=== PATIENT | male | born 1950 | race Caucasian/White ===

== ENCOUNTER 2022-05-29 16:46 | Emergency (ER) | payer MEDICARE, SELFPAY ==
[2022-05-29 16:53] VITALS: BP 197/91; PULSE 71; RESP 20; TEMP 36.6; O2SAT 99
--- NOTE | 2022-05-29 17:32 | ED.WOUNDLAC ---
HPI - Wound/Laceration General Chief Complaint: Wound/Laceration Stated Complaint: finger lac Time Seen by Provider: 05/29/22 17:16 History of Present Illness HPI narrative: 71-year-old male here for evaluation of a laceration sustained to his left index finger about 30 minutes prior to arrival. Patient states that he was working with a utility knife when he lost control of the knife and accidentally cut his index finger. He dressed the wound and presented directly to the ED. He does take Eliquis. He denies any numbness or tingling or difficulty moving the finger. Tetanus is up-to-date. Related Data Allergies Allergy/AdvReac Type Severity Reaction Status Date / Time No Known Allergies Allergy Unverified 05/29/22 17:25 Review of Systems Review of Systems: Gen.: Denies fevers or chills Eyes: Denies eye pain or visual change ENT: Denies congestion Respiratory: Denies shortness of breath or cough CV: Denies chest pain or palpitations GI: Denies abdominal pain nausea, emesis or diarrhea denies burning, urgency, frequency or hematuria Musculoskeletal: Denies back pain or muscle pain Neuro: Denies numbness, tingling, weakness or focal weakness Skin: Reports laceration Except as documented, all other systems reviewed and negative Exam Narrative: Gen: Alert, oriented, no acute distress Eyes: EOMI, no icterus Pulm: Respirations even and unlabored, symmetric thorax expansion, no audible stridor or visible cyanosis CV: Regular rate per telemetry GI: No distension, no voluntary/involuntary guarding Neuro: AOx4, moves all extremities without apparent difficulty or weakness, follows commands MSK: Patient has full active range of motion in the affected digit. Sensation intact throughout entirety of digit. Brisk capillary refill. Skin: Patient has a 1-1/2 linear laceration to the radial aspect of the left index finger running parallel just distal to the PIP with no active bleeding. Psych: Normal mood/affect, insight/judgement good, adequate fund of knowledge, recent/remote memory intact Course Vital Signs Vital signs: Vital Signs Temperature 97.8 F 05/29/22 16:53 Pulse Rate 71 05/29/22 16:53 Respiratory Rate 20 05/29/22 16:53 Blood Pressure 197/91 H 05/29/22 16:53 Pulse Oximetry 99 05/29/22 16:53 Oxygen Delivery Room Air 05/29/22 16:53 Temperature 97.8 F 05/29/22 18:39 Pulse Rate 65 05/29/22 18:39 Respiratory Rate 20 05/29/22 16:53 Blood Pressure 144/79 H 05/29/22 18:39 Pulse Oximetry 96 05/29/22 18:39 Oxygen Delivery Room Air 05/29/22 16:53 MDM - Wound/Laceration MDM Narrative Medical decision making narrative: 71-year-old right-handed male here for evaluation of a laceration sustained to his index finger about 30 minutes prior to arrival from a utility knife. There is no evidence of tendon or nerve involvement on exam. Mechanism does not support underlying bony injury/FB thus x-ray was not obtained. The laceration was repaired after extensive irrigation and cleansing. His tetanus is up-to-date. Was discharged home to follow-up with his primary care doctor, return precautions were discussed and he voiced understanding. Discharge Plan Discharge Clinical Impression: Laceration Patient Disposition: Home, Self-Care Condition: Stable Instructions: Antibiotic Form, Care For Your Stitches (ED), Laceration (ED) Additional Instructions: You had sutures placed today that will need to come out in about 7 days. Keep the wound clean dry and covered. This can be done by your primary care doctor, in urgent care or you may come back to the ED. Please return to the ED if you notice signs of infection, particularly surrounding redness or swelling in the digit. Follow-up/Referrals: PHYSICIAN,MEDIA SERVICES DIRECTOR [Non-Staff] -
--- NOTE | 2022-05-29 17:51 | PC.NURSE ---
EDP at bedside to complete laceration repair
[2022-05-29] MEDS: LIDOCAINE HCL 1% LOCAL INJ 20 ML VIAL 5 ML INFILTRATE (17:53)
[2022-05-29 18:39] VITALS: BP 144/79; PULSE 65; TEMP 36.6; O2SAT 96
== END 2022-05-29 18:46 | disposition home or self-care (01) ==
LOC: ANHED 18:19
PROVIDERS: Emergency Provider Physician Assistant
DX: S61.211A Laceration without foreign body of left index finger without damage to nail, initial encounter (principal); Z79.01 Long term (current) use of anticoagulants; W27.0XXA Contact with workbench tool, initial encounter
CPT/HCPCS: 12001; 99282

== ENCOUNTER 2022-12-26 01:02 | Day surgery (SDC) | payer MEDICARE, SELFPAY ==
[2022-12-03 08:59] VITALS: BMI 30.7
[2022-12-25 14:49] VITALS: BMI 30.7
--- NOTE | 2022-12-25 14:50 | PM.HPGS ---
History of Present Illness History of Present Illness Consent: Risks, benefits, and alternatives have been discussed and questions answered. Patient agrees to proceed with procedure. Chief complaint: melena Narrative: Willie Kevin Sr. is a 72 year old male referred for investigation of blood in his stools. A recent Hemoccult test was positive for blood. she hemoglobin is slightly low at 12.7. Iron studies were normal. Review of Systems Review of Systems: All systems reviewed & are unremarkable except as noted in HPI and below PMFSH Social History Social History Smoking status: Never smoker Alcohol intake: never Substance use: never Substance use type: does not use Living arrangements: with family Spiritual care concerns: No Meds Home Medications and Allergies Home Medications Medication Instructions Recorded Confirmed Type apixaban 5 mg tablet (Eliquis) 5 mg PO BID 11/02/22 12/25/22 History atorvastatin 80 mg tablet (Lipitor) 80 mg PO DAILY 11/02/22 12/25/22 History furosemide 20 mg tablet 20 mg PO BID 11/02/22 12/25/22 History insulin glargine 100 unit/mL (3 15 unit subcut QHS 11/02/22 12/25/22 History mL) subcutaneous pen (Lantus Solostar U-100 Insulin) metformin 500 mg tablet 500 mg PO BID 11/02/22 12/25/22 History ranolazine 500 mg tablet,extended 500 mg PO Q12H 11/02/22 12/25/22 History release,12 hr sacubitril 24 mg-valsartan 26 mg 1 tablet PO BID 11/02/22 12/25/22 History tablet (Entresto) tamsulosin 0.4 mg capsule (Flomax) 0.8 mg PO DAILY #180 caps 11/02/22 12/25/22 Rx empagliflozin 10 mg tablet 10 mg PO QAM #90 tabs 11/06/22 12/25/22 Rx (Jardiance) albuterol 90 mcg/actuation aerosol 90 mcg inhalation DAILY PRN SOB 12/03/22 12/25/22 History inhaler carvedilol 6.25 mg tablet 6.25 mg PO Q12H #180 tabs 12/07/22 12/25/22 Rx isosorbide dinitrate 30 mg tablet 30 mg PO BID #180 tabs 12/07/22 12/25/22 Rx Allergies Allergy/AdvReac Type Severity Reaction Status Date / Time No Known Allergies Allergy Verified 12/26/22 08:15 Exam Const: General: alert Orientation/consciousness: patient oriented x3 Resp: Auscultation: clear to auscultation bilaterally Cardio: Rhythm: regular rhythm GI: GI Palp: Yes Soft to palpation and No Tenderness to palpation present (GI) Neuro: General: patient oriented x3 Assessment and Plan Assessment and plan (1) Blood in stool: Code(s): K92.1 - Melena Status: Acute Assessment and Plan: EGD with possible biopsy or dilatation or cautery.Colonoscopy with possible biopsy or polypectomy or cautery or injection of substances.
[2022-12-26 08:21] VITALS: BP 133/76; PULSE 62; RESP 18; TEMP 36.2; O2SAT 92
[2022-12-26 08:33] LABS: Glucose Point of Care 100 mg/dl (65-105)
[2022-12-26] MEDS: LACTATED RINGERS 1,000 ML 150 ML IV CONT (08:38)
--- NOTE | 2022-12-26 09:05 | WPDANESEPPF ---
Anes - Initial Pre Proc Eval Procedure: Operation Date: 12/26/22 09:30 Proposed Procedures p Esophagogastroduodenoscopy & Colonoscopy - Manpreet Cornejo MD Date/Time: 12/26/22 09:05 Surgeon: Manpreet Cornejo MD Pre Op Diagnosis: melena Patient Data Age: 72 Gender: M Height: 1.8 m Weight: 113.3 kg Last Vital Signs Temp 97.1 F L 12/26/22 08:21 Pulse 62 12/26/22 08:21 Resp 18 12/26/22 08:21 BP 133/76 12/26/22 08:21 Pulse Ox 92 12/26/22 08:21 O2 Del Method Room Air 12/26/22 08:21 Allergies Allergy/AdvReac Type Severity Reaction Status Date / Time No Known Allergies Allergy Verified 12/26/22 08:15 Home Medications Medication Instructions Recorded Confirmed Type apixaban 5 mg tablet (Eliquis) 5 mg PO BID 11/02/22 12/26/22 History atorvastatin 80 mg tablet (Lipitor) 80 mg PO DAILY 11/02/22 12/25/22 History furosemide 20 mg tablet 20 mg PO BID 11/02/22 12/25/22 History insulin glargine 100 unit/mL (3 15 unit subcut QHS 11/02/22 12/25/22 History mL) subcutaneous pen (Lantus Solostar U-100 Insulin) metformin 500 mg tablet 500 mg PO BID 11/02/22 12/26/22 History ranolazine 500 mg tablet,extended 500 mg PO Q12H 11/02/22 12/25/22 History release,12 hr sacubitril 24 mg-valsartan 26 mg 1 tablet PO BID 11/02/22 12/25/22 History tablet (Entresto) tamsulosin 0.4 mg capsule (Flomax) 0.8 mg PO DAILY #180 caps 11/02/22 12/25/22 Rx empagliflozin 10 mg tablet 10 mg PO QAM #90 tabs 11/06/22 12/25/22 Rx (Jardiance) albuterol 90 mcg/actuation aerosol 90 mcg inhalation DAILY PRN SOB 12/03/22 12/25/22 History inhaler carvedilol 6.25 mg tablet 6.25 mg PO Q12H #180 tabs 12/07/22 12/26/22 Rx isosorbide dinitrate 30 mg tablet 30 mg PO BID #180 tabs 12/07/22 12/25/22 Rx Laboratory Tests 12/26/22 08:31 POC Capillary Glucose 100 mg/dl (65-105) Patient hx anesthesia problems: none Family hx anesthesia problems: none Results Review: All pre-operative results and documents have been reviewed as part of the pre-operative evaluation. COUNTS INCLUDE 234 BEDS AT THE [facility] Social History Social History Smoking status: Never smoker Alcohol intake: never Substance use: never Substance use type: does not use Living arrangements: with family Spiritual care concerns: No Anes - Eval Final PreProcedure Day of Procedure 12/26/22 09:05 Patient weight: obese Heart: regular rate and rhythm Lungs: clear to auscultation Airway: Mallampati scale class II Neurological: alert and oriented Last oral intake: >/= 8 hours ASA classification: III Emergent: no Anesthetic plan: proceed Anesthesia type and monitoring: general GIVS and standard monitoring Results Review: All pre-operative results and documents have been reviewed as part of the pre-operative evaluation. Informed Consent: The patient's anesthetic plan and its attendant risks and benefits were discussed with the patient/family/POA. Questions were solicited and answers provided to the satisfaction of the patient/family/POA.
--- NOTE | 2022-12-26 09:26 | SUR.OPER ---
EGD ended 917 colonoscopy started 924
[2022-12-26 09:40] VITALS: BP 109/67; PULSE 54; RESP 16; O2SAT 95
[2022-12-26 09:50] VITALS: BP 116/74; PULSE 52; RESP 18; O2SAT 98
[2022-12-26 10:00] VITALS: BP 134/82; PULSE 54; RESP 18; O2SAT 97
[2022-12-26 10:14] LABS: Glucose Point of Care 90 mg/dl (65-105)
== END 2022-12-26 10:14 | disposition home or self-care (01) ==
PROVIDERS: PCP Family Medicine; Visit Provider Internal Medicine Gastroenterology
PROC: 0DJ08ZZ Inspection of Upper Intestinal Tract, Via Natural or Artificial Opening Endoscopic (ICD-10-PCS; CPT 43235; principal; 2022-12-26 09:30)
DX: K57.30 Diverticulosis of large intestine without perforation or abscess without bleeding (principal); K64.8 Other hemorrhoids; K21.9 Gastro-esophageal reflux disease without esophagitis; K29.70 Gastritis, unspecified, without bleeding; Z79.01 Long term (current) use of anticoagulants; Z79.4 Long term (current) use of insulin; Z79.84 Long term (current) use of oral hypoglycemic drugs; Z79.51 Long term (current) use of inhaled steroids; E66.9 Obesity, unspecified; Z68.34 Body mass index [BMI] 34.0-34.9, adult
CPT/HCPCS: 45378; 43239; 82948; 87081; J2704; J7120

== ENCOUNTER 2023-01-16 12:35 | Emergency (ER) | payer MEDICARE, SELFPAY ==
[2023-01-16] VITALS (12 sets, daily range): BP systolic 141–180; BP diastolic 80–101; PULSE 60–70; RESP 15–23; TEMP 36.8; O2SAT 93–99
--- NOTE | ~2023-01-16 | XR_ITS ---
EXAMINATION: XR chest 2V 01/16/2023 13:07 INDICATION: Chest pain and dyspnea. Asthma. PROCEDURE: 2 view chest COMPARISON: Comparison to multiple prior studies sequentially, with oldest reviewed study dated 06/13. FINDINGS: The lungs are clear. The cardiomediastinal silhouette is within normal limits. There are no pleural effusions. There is no pneumothorax suspected. IMPRESSION: 1: NO ACUTE CARDIOPULMONARY DISEASE. Reviewed, dictated and finalized at location B.
--- NOTE | 2023-01-16 12:43 | ECG_ITS ---
Measurements Intervals [place] Rate: 71 P: -23 SC: 137 QRS: -29 QRSD: 118 T: 76 QT: 420 QTc: 456 Interpretive Statements SINUS RHYTHM INCOMPLETE LEFT BUNDLE BRANCH BLOCK BORDERLINE ST-T WAVE ABNORMALITY- ANTEROLAT/HIGH LAT LEADS BASELINE ARTIFACT- I, II, AVR, AVL, AVF, V4 ABNORMAL ECG NO PREVIOUS ECG AVAILABLE FOR COMPARISON Electronically Signed On 01-16-2023 12:51:17 CDT by Monty Yao D.O.
[2023-01-16 13:00] LABS: Basophils Absolute Auto 0.1 K/mm3 (0.0-0.1); Basophils Percent Auto 0.7 % (0.2-1.2); Eosinophils Absolute Auto 0.8 K/mm3 (0-0.3); Eosinophils Percent Auto 9.1 % (0-4.4); Hematocrit 40.9 % (42.0-52.0); Hemoglobin 13.3 g/dL (14.0-18.0); Immature Granulocyte Absolute 0.04 K/mm3 (0.00-0.031); Immature Granulocyte Percent A 0.5 % (0-0.5); Lymphocytes Absolute Auto 1.64 K/mm3 (0.9-3.2); Lymphocytes Percent Auto 19.2 % (18.3-44.2); Mean Corpuscular HGB Conc 32.5 g/dl (32-36); Mean Corpuscular Hemoglobin 29.5 pg (26-34); Mean Corpuscular Volume 90.7 fl (80-100); Mean Platelet Volume 9.2 fl (7.4-10.4); Monocytes Absolute Auto 0.4 K/mm3 (0.1-0.6); Monocytes Percent Auto 4.4 % (2.6-8.5); Neutrophils Absolute Auto 5.7 K/mm3 (1.3-6.7); Neutrophils Percent Auto 66.1 % (45.5-73.1); Platelet Count Result 171 k/mm3 (150-375); Red Blood Count 4.51 M/mm3 (4.6-6.20); Red Cell Distribution Width 13.1 % (11.5-14.5); White Blood Count 8.6 K/mm3 (4.5-10.0)
[2023-01-16 13:11] LABS: Alanine Aminotransferase 22 U/L (6-50); Albumin Level 4.5 g/dL (3.5-5.1); Alkaline Phosphatase 106 U/L (38-126); Anion Gap 10 mmol/L (8-16); Aspartate Amino Transferase 29 U/L (17-59); Bilirubin,Total 1.2 mg/dL (0.2-1.3); Blood Urea Nitrogen 12 mg/dL (9-20); Calcium 8.7 mg/dL (8.4-10.2); Carbon Dioxide 28 mmol/L (22-30); Chloride 100 mmol/L (98-107); Estimated CRCL calculation 90 ml/min; Estimated Glomerular Filt Rate > 60; Glucose 223 mg/dL (65-110); Lipase 21 U/L (23-300); Potassium 3.9 mmol/L (3.4-5.0); Sodium 138 mmol/L (137-145)
[2023-01-16 13:18] LABS: INR 1.1; Prothrombin Time 14.8 Seconds (11.1-14.7)
[2023-01-16 13:19] LABS: Partial Thromboplastin Time 34.5 SECONDS (22.3-36.8)
[2023-01-16 13:22] LABS: Troponin I < 0.012 ng/mL (0.000-0.034)
[2023-01-16] MEDS: ALBUTEROL SULFATE NEB 2.5 MG/3 ML INH 10 MG INHALATION (13:27)
[2023-01-16] MEDS: IPRATROPIUM BR 0.02% INH SOLN 0.5 MG/2.5 ML VIAL 1 MG INHALATION (13:27)
[2023-01-16 13:37] LABS: Influenza A QL RT-PCR Negative (Negative); Influenza B QL RT-PCR Negative (Negative); SARS-CoV-2 RNA PCR Negative (Negative)
--- NOTE | 2023-01-16 13:41 | ED.CHESTPAIN ---
HPI - Chest Pain General Chief Complaint: Chest Pain Stated Complaint: chest pain/dyspnea Time Seen by Provider: 01/16/23 12:44 History of Present Illness HPI narrative: Patient is a 72-year-old male who presents ER with shortness of breath. Worsening over last 2 days. Associated with wheezing and chest tightness. Feels consistent with previous lung disease exacerbations as he has had in the past. He uses albuterol with minimal improvement. No runny nose or sore throat. He does have frequent coughing that causes some pain in his chest as well. No known sick contacts. Called his PCP who recommended he come to the ER for evaluation. Related Data Home Medications Medication Instructions Recorded Confirmed apixaban 5 mg tablet (Eliquis) 5 mg PO BID 11/02/22 12/26/22 atorvastatin 80 mg tablet (Lipitor) 80 mg PO DAILY 11/02/22 12/25/22 furosemide 20 mg tablet 20 mg PO BID 11/02/22 12/25/22 insulin glargine 100 unit/mL (3 15 unit subcut QHS 11/02/22 12/25/22 mL) subcutaneous pen (Lantus Solostar U-100 Insulin) metformin 500 mg tablet 500 mg PO BID 11/02/22 12/26/22 ranolazine 500 mg tablet,extended 500 mg PO Q12H 11/02/22 12/25/22 release,12 hr sacubitril 24 mg-valsartan 26 mg 1 tablet PO BID 11/02/22 12/25/22 tablet (Entresto) albuterol 90 mcg/actuation aerosol 90 mcg inhalation DAILY PRN SOB 12/03/22 12/25/22 inhaler Allergies Allergy/AdvReac Type Severity Reaction Status Date / Time No Known Allergies Allergy Verified 12/26/22 08:15 Review of Systems Review of Systems: All systems reviewed & are unremarkable except as noted in HPI and below Constitutional: Constitutional: Denies chills and Denies fever(s) ENT: Denies nasal congestion and Denies sore throat Cardiovascular: Cardiovascular: Reports chest pain, Denies rapid heart rate and Denies radiating jaw, neck or arm pain Respiratory: Respiratory: Reports cough, Reports dyspnea and Reports wheezing Gastrointestinal: Gastrointestinal: Denies abdominal pain, Denies diarrhea, Denies nausea and Denies vomiting Genitourinary: Genitourinary: Reports no additional male genitourinary complaints Musculoskeletal: Musculoskeletal: Reports no additional musculoskeletal complaints PMFSH Past Medical History Medical History (Updated 01/16/23 @ 17:39 by Sukhdev Montes MD) BPH (benign prostatic hyperplasia) CAD (coronary artery disease) CHF (congestive heart failure) Diabetes Hypertension Neuropathy Social History Social History Smoking status: Never smoker Alcohol intake: never Substance use: never Substance use type: does not use Living arrangements: with family Spiritual care concerns: No Exam Narrative: GENERAL: Well-appearing, well-nourished, and in no acute distress. HEAD: Normocephalic, atraumatic. EYES: PERRL and EOMI. ENT: Mucous membranes moist. Elongation of the uvula without significant edema. Tonsils normal in size. Tolerating oral secretions without issue. CHEST: Expiratory wheezing bilaterally. No respiratory distress. No stridor. HEART: Regular rate and rhythm. Normal peripheral pulses. ABDOMEN: Soft, nontender, nondistended. EXTREMITIES: Normal range of motion. Trace edema. SKIN: Warm, dry, no rash. NEURO: Alert and oriented x3. PSYCH: Normal mood and affect. Course Course Emergency Course: Wheezing improving with nebulizer treatments. Patient does have a long uvula which is felt to be asset protection representative of uvulitis since he gags if he lays back. Steroid should help this. Patient educated on treatment plan and verbalized understanding. Vital Signs Vital signs: Vital Signs Pulse Rate 70 01/16/23 12:45 Respiratory Rate 20 01/16/23 12:45 Pulse Oximetry 97 01/16/23 12:45 Temperature 98.3 F 01/16/23 12:56 Pulse Rate 60 01/16/23 17:09 Respiratory Rate 20 01/16/23 17:09 Blood Pressure 166/95 H 01/16/23 17:09 Pulse Oxim
[2023-01-16 16:10] LABS: Troponin I < 0.012 ng/mL (0.000-0.034)
[2023-01-16] MEDS: ALBUTEROL SULFATE NEB 2.5 MG/3 ML INH INHALATION (16:34)
[2023-01-16] MEDS: methylPREDNISolone SOD SUCC 125 MG VIAL IV PUSH (17:07)
== END 2023-01-16 17:51 | disposition home or self-care (01) ==
PROVIDERS: Emergency Provider Emergency Medicine; PCP Family Medicine
DX: J40 Bronchitis, not specified as acute or chronic (principal); K12.2 Cellulitis and abscess of mouth; Z20.822 Contact with and (suspected) exposure to COVID-19; I25.10 Atherosclerotic heart disease of native coronary artery without angina pectoris; I50.9 Heart failure, unspecified; I11.0 Hypertensive heart disease with heart failure; E11.40 Type 2 diabetes mellitus with diabetic neuropathy, unspecified; N40.0 Benign prostatic hyperplasia without lower urinary tract symptoms; Z79.01 Long term (current) use of anticoagulants; Z79.84 Long term (current) use of oral hypoglycemic drugs; Z79.4 Long term (current) use of insulin; I44.7 Left bundle-branch block, unspecified; R94.31 Abnormal electrocardiogram [ECG] [EKG]
CPT/HCPCS: 36415; 71046; 80053; 83690; 84484; 85025; 85610; 85730; 87636; 93005; 94640; 96374; 99284; J2930

== ENCOUNTER 2023-02-07 09:11 | Outpatient (CLI) | payer MEDICARE, SELFPAY ==
--- NOTE | 2023-02-07 12:03 | WPDPFTINT ---
PFT Procedure Performed PFT Procedure Performed Spirometry with Pre/Post Bronchodilator Plethysmography (Lung Vol) Diffusing Cap (DLCO) Flow Vol Loop PFT Interpretation This is a pulmonary function test with spirometry, plethysmography and diffusing capacity. The test was performed and results interpreted in accordance with the 2019 and 2005 ATS/ERS Task Force guidelines respectively using the Global Lung Function Initiative-2012 reference equations. Patient demonstrated good effort and cooperation. Reproducibility criteria were met. The quality of the spirometry maneuver was Grade A. Findings: Spirometry: There is decreased maximal expiratory airflow at all lung volumes with concave expiratory flow tracing. The contour the inspiratory flow tracing is normal. The FVC is 2.60 L, 62% predicted. The FEV1 is 1.86 L, 59% predicted. The FEV1: FVC ratio 71%. Plethysmography: The total lung capacity is 5.64 L, 78% predicted. The functional residual capacity is 3.22 L, 83% predicted. The residual volume is 2.87 L, 111% predicted. Diffusing capacity: The diffusing capacity unadjusted for hemoglobin and carboxyhemoglobin is 16.9, 66% predicted. The diffusing capacity adjusted for alveolar volume is 3.49, 93% predicted. Impression: The spirometry is normal without evidence of an obstructive abnormality. The lung volumes are normal without evidence of and restrictive abnormality. The FVC and FEV1 are moderately decreased without an obstructive or restrictive abnormality. This is an abnormal but nonspecific finding. The diffusing capacity unadjusted for hemoglobin and carboxyhemoglobin is mildly decreased and normalizes when adjusted for alveolar volume. There are no prior studies for comparison
== END 2023-02-07 09:12 | disposition home or self-care (01) ==
PROVIDERS: PCP Family Medicine; Visit Provider Internal Medicine Cardiovascular Disease
DX: J44.9 Chronic obstructive pulmonary disease, unspecified (principal)
CPT/HCPCS: 93225; 93226; 94375; 94726; 94729

== ENCOUNTER 2023-02-07 09:14 | Outpatient (CLI) | payer MEDICARE, SELFPAY ==
--- NOTE | 2023-02-12 14:12 | WPDHOLTEREM ---
Holter/Event Monitor Holter/Event Monitor Date of procedure: 02/07/23 Holter/Event Procedure: 24 Hr Holter Monitor Indications: Diastolic HF Conclusion: 1. 24 hour holter monitor on 02/07/23. 2. Predominant rhythm is sinus rhythm. HR range 54-99 bpm; average HR 66 bpm. 3. There are 315 premature supraventricular complexes and 8 supraventricular couplets and 1 supraventricular triplet, and 67 supraventricular bigeminy. There is 1 episode of atrial tachycardia at 143 bpm lasting 4 beats at 23:20. 4. There are 7,328 premature ventricular complexes, 36 ventricular couplets, 8 ventricular triplets, 24 ventricular bigeminy and 2,524 ventricular trigeminy. No ventricular tachycardia. 5. No sinoatrial or atrioventricular blocks. No significant pauses greater than 2 seconds. 6. No symptoms available for correlation.
== END 2023-02-07 09:15 | disposition home or self-care (01) ==
LOC: ANHCARD 09:15
PROVIDERS: PCP Family Medicine; Visit Provider Internal Medicine Cardiovascular Disease
DX: I50.32 Chronic diastolic (congestive) heart failure (principal); I25.10 Atherosclerotic heart disease of native coronary artery without angina pectoris; H93.A3 Pulsatile tinnitus, bilateral; E11.9 Type 2 diabetes mellitus without complications; K21.9 Gastro-esophageal reflux disease without esophagitis; I21.3 ST elevation (STEMI) myocardial infarction of unspecified site; J44.9 Chronic obstructive pulmonary disease, unspecified
CPT/HCPCS: 93225; 93226

== ENCOUNTER 2023-04-23 10:04 | Outpatient (CLI) | payer MEDICARE, SELFPAY ==
--- NOTE | ~2023-04-23 | CT_ITS ---
Clinical Indication: Cough CT Scan of the Chest with Contrast: Technique: Contiguous sections were acquired throughout the chest after intravenous administration of 100 cc of Omnipaque 350. Dose reduction technique was used on this scan by utilizing automated expos ure control and iterative reconstruction technique. The dose-length product (DLP) was 893.60 mGy-cm. Findings: There is no evidence of any significant mediastinal, hilar or axillary lymphadenopathy. There is no f illing defect in the pulmonary arterial tree to suggest pulmonary embolus. There is no evidence of ao rtic dissection or aneurysm. There is no evidence of pleural or pericardial effusion. Calcified pleural plaques present. The lungs are clear. No pulmonary nodules or infiltrates are noted. Images through the upper abdomen reveal no abnormalities. Impression: No evidence of pulmonary embolus, aortic dissection, or aortic aneurysm. No acute pulmonary abnormality. Calcified pleural plaque. Reviewed, dictated and finalized at [facility] [place]. IO GRIP Impression: No evidence of pulmonary embolus, aortic dissection, or aortic aneurysm. No acute pulmonary abnormality. Calcified pleural plaque.
[2023-04-23 10:58] LABS: Estimated Glomerular Filt Rate > 60
== END 2023-04-23 10:05 | disposition home or self-care (01) ==
LOC: ANHIMG 10:05
PROVIDERS: PCP Family Medicine; Visit Provider Nurse Practitioner Family
DX: R04.2 Hemoptysis (principal); R05.9 Cough, unspecified
CPT/HCPCS: 71275; Q9967

== ENCOUNTER 2023-05-01 14:25 | Outpatient (CLI) | payer MEDICARE, SELFPAY ==
--- NOTE | ~2023-05-01 | XR_ITS ---
XR lumbar spine min 4V DATE: 05/01/2023 14:54 INDICATION: Leg pain TECHNIQUE: AP, lateral, bilateral oblique views, coned lateral lumbosacral view COMPARISON: None FINDINGS: Normal alignment lumbar spine. There is mild thoracolumbar levoscoliosis. There is moderate degenerative disc disease at L1 to and severe degenerative disc disease at the lexx [place] of the lumbar and lumbosacral spine. Prominent degenerative spurring in the lower thoracic spine. Degenerative change at the apophyseal joints. No spondylolysis or spondylolisthesis is evident. The lumbar pedicles are intact. No fracture or bone destruction. Normal alignment at the sacroiliac joints. Moderately prominent bilateral hip osteoarthritis. IMPRESSION: Severe multilevel lumbar degenerative disc disease Reviewed, dictated and finalized at location B. ERATIVE EDUCATION DIRECTOR
--- NOTE | ~2023-05-01 | XR_ITS ---
XR knee LT min 4V DATE: 05/01/2023 14:54 INDICATION: Left knee pain TECHNIQUE: [place] and standing AP, PA and lateral views COMPARISON: None FINDINGS: There is suggestion of suprapatellar knee joint effusion. Very prominent periarticular spurring at the patellofemoral joint, severe medial compartment joint s pace with [id number] and mild cupping of the medial tibial plateau and periarticular spurring at th e lateral compartment are noted, consistent with severe tricompartment osteoarthritis. No fracture or dislocation, periosteal reaction or bone destruction, radiopaque intra-articular loose body or chondrocalcinosis is noted. IMPRESSION: Severe tricompartment osteophytosis involving particularly the medial and patellofemoral compartments Knee joint effusion Reviewed, dictated and finalized at location B. TEGIC PLANNER IMPRESSION: Severe tricompartment osteophytosis involving particularly the medi al and patellofemoral compartments Knee joint effusion
--- NOTE | ~2023-05-01 | XR_ITS ---
XR knee RT min 4V DATE: 05/01/2023 14:54 INDICATION: Right knee pain TECHNIQUE: [place] and standing AP, PA and lateral views COMPARISON: None FINDINGS: There is severe loss of medial and lateral compartment joint space and particular spurring at all 3 compartments. There is hypertrophic change of the medial tibial spine. There is suprapatellar knee joint effusion. No fracture or dislocation, periosteal reaction or bone destruction, radiopaque intra-articular loose body or chondrocalcinosis is evident. IMPRESSION: Severe tricompartment osteoarthritis Joint effusion Reviewed, dictated and finalized at location B. ++ DEVELOPER
== END 2023-05-01 14:26 | disposition home or self-care (01) ==
PROVIDERS: PCP Family Medicine; Visit Provider Family Medicine
DX: M51.36 Other intervertebral disc degeneration, lumbar region (principal); M25.462 Effusion, left knee; M25.762 Osteophyte, left knee; M25.461 Effusion, right knee; M17.11 Unilateral primary osteoarthritis, right knee; E11.9 Type 2 diabetes mellitus without complications; I25.10 Atherosclerotic heart disease of native coronary artery without angina pectoris; I50.9 Heart failure, unspecified
CPT/HCPCS: 72110; 73564; J1100; J2405; J2704

== ENCOUNTER 2023-05-30 14:47 | Outpatient (CLI) | payer MEDICARE, SELFPAY ==
--- NOTE | ~2023-05-30 | MR_ITS ---
EXAMINATION: MR lumbar spine wo con DATE: 05/30/2023 16:22 INDICATION: Low back pain. Right leg pain. TECHNIQUE: Magnetic resonance imaging (MRI) of the lumbar spine was performed without intravenous con trast. Sequences included sagittal T2-weighted FSE, sagittal T2-weighted FS FSE, sagittal T1-weighted FSE, and axial T2-weighted FSE. COMPARISON: Lumbar spine radiographs 05/01/2023 FINDINGS: Bone alignment is normal. Vertebral body heights are normal. There is severely decreased di sc height from L2-L3 through L5-S1 with endplate remodeling. There are Modic type II changes at L2-L3 and L3-L4 and Modic type I and type II changes at L4-L5 and L5-S1. There is ligamentum flavum hypert rophy at the disc levels from L1-L2 through L4-L5. The distal spinal cord signal intensity is normal. The conus medullaris is at L1-L2. The following disc levels are specifically discussed: L1-L2: The disc is bulging. There is severe bilateral facet joint osteoarthritis. There is mild bilat eral neural foraminal stenosis. There is no central canal stenosis. L2-L3: The disc is bulging and has an annular fissure. There is severe bilateral facet joint osteoart hritis. There is moderate bilateral neural foraminal stenosis. There is mild central canal stenosis. L3-L4: The disc is bulging and has an annular fissure. There is severe bilateral facet joint osteoart hritis. There is moderate bilateral neural foraminal stenosis. There is mild central canal stenosis. L4-L5: The disc is bulging and has an annular fissure. There is severe bilateral facet joint osteoart hritis. There is moderate bilateral neural foraminal stenosis. There is moderate central canal stenos is. L5-S1: The disc is bulging and has an annular fissure. There is severe bilateral facet joint osteoart hritis. There is moderate bilateral neural foraminal stenosis. There is mild central canal stenosis. IMPRESSION: 1. Severe lumbar spondylosis. Reviewed, dictated and finalized at location E. KERING MACHINE OPERATOR
== END 2023-05-30 14:48 | disposition home or self-care (01) ==
PROVIDERS: PCP Family Medicine; Visit Provider Anesthesiology Pain Medicine
DX: M43.06 Spondylolysis, lumbar region (principal); M48.062 Spinal stenosis, lumbar region with neurogenic claudication
CPT/HCPCS: 72148

== ENCOUNTER 2023-08-15 08:22 | Outpatient (CLI) | payer MEDICARE, SELFPAY ==
--- NOTE | 2023-08-15 13:49 | WPDSIXMINUTE ---
Six Minute Walk Procedure Procedure Performed Pulmonary Stress Test (6 min walk) Six Minute Walk Six Minute Walk: This is a 6 minute walk test. The test was performed and interpreted in accordance with the 2014 ERS/ATS task force guidelines. Of note, patient used wheeled walker for stability. Findings: The patient's resting room air oxygen saturation measured by pulse oximetry was 94% and heart rate was 70 bpm. Patient ambulated for 183 meters and oxygen saturation remained 90 to 93%. Heart rate at the end of the study was 86 bpm. The patient did not qualify for supplemental oxygen at rest or with ambulation. There are no prior studies for comparison.
== END 2023-08-15 08:23 | disposition home or self-care (01) ==
LOC: ANHPFT 08:24
PROVIDERS: PCP Family Medicine; Visit Provider Nurse Practitioner Family
DX: R06.09 Other forms of dyspnea (principal)
CPT/HCPCS: 94618